=== PATIENT | male | born 1965 | race Caucasian/White ===

== ENCOUNTER 2017-12-26 07:39 | Day surgery (SDC) | payer OTHER ==
[~2017-12-26] VITALS: Ht 182.9 cm; Wt 140.6 kg
[2017-12-26] VITALS (11 sets, daily range): BP systolic 105–137; BP diastolic 70–93
[~2017-12-26 07:39] MED LIST: BENA1TAB15 PO; BNZ20T; DILT300C25; DILT420C10 PO; ENOX300V SQ; FENO145T PO; HYDR-34 PO; JANTOVEN PO
[2017-12-26] MEDS ORDERED: NS IV 1000 ML 1,000 ML IV SCH ×2 (07:56→11:54)
[2017-12-26] MEDS ORDERED: LIDOCAINE 1% INJ 20 ML 20 ML VIAL ONE ×2 (08:04→11:17)
[2017-12-26] MEDS ORDERED: NS IV 1000 ML 2,000 ML ONE (08:04)
[2017-12-26] MEDS ORDERED: ceFAZolin 1,000 MG (ANCEF) VIAL ONE (08:04)
[2017-12-26 08:25] LABS: BILIRUBIN,URINE NEGATIVE (NEGATIVE); CLARITY,URINE CLEAR; COLOR,URINE YELLOW; GLUCOSE, URINE (UA) NEGATIVE (NEGATIVE); KETONES,URINE NEGATIVE (NEGATIVE); LEUKOCYTE ESTERASE ,URINE NEGATIVE (NEGATIVE); NITRITE,URINE NEGATIVE (NEGATIVE); PH,URINE 6 (5-9); PROTEIN,URINE NEGATIVE (NEGATIVE); UROBILINOGEN,URINE 1 MG/DL (NORMAL)
[2017-12-26 08:26] LABS: HEMOGLOBIN 16.4 G/DL (13.3-17.7); MEAN PLATELET VOLUME 11.3 FL (7.4-10.4); RED BLOOD COUNT 5.43 10^6/uL (4.35-5.85); RED CELL DISTRIBUTION WIDTH 14.4 % (10.0-14.5); WHITE BLOOD COUNT 6.4 10^3/uL (4.3-11.0)
--- NOTE | 2017-12-26 08:26 | Diagnostic Imaging Report ---
INDICATION: Pacemaker generator change Frontal chest obtained at 813 hours a.m. The heart is mildly enlarged. Mediastinal silhouette is otherwise unremarkable. The lungs show no focal infiltrate. There is no pneumothorax or pleural fluid. There is a single-lead pacemaker device in place with tip overlying the right ventricle. IMPRESSION: Cardiomegaly with pacemaker in place. No acute infiltrate or pleural fluid. Dictated by: Dictated on workstation # [id number]
[2017-12-26 08:32] LABS: BACTERIA,URINE NEGATIVE /HPF; SQUAMOUS EPITHELIAL CELL,UR RARE /HPF
[2017-12-26 08:40] LABS: INR 1.6 (0.8-1.4); PROTHROMBIN TIME PATIENT 19.1 SEC (12.2-14.7)
[2017-12-26 08:48] LABS: ALANINE AMINOTRANSFERASE 29 U/L (0-55); ALBUMIN 4.3 GM/DL (3.2-4.5); ALKALINE PHOSPHATASE 38 U/L (40-136); BILIRUBIN,TOTAL 0.6 MG/DL (0.1-1.0); BUN/CREATININE RATIO 15; CALCIUM 9.3 MG/DL (8.5-10.1); CARBON DIOXIDE 22 MMOL/L (21-32); CHLORIDE 107 MMOL/L (98-107); GFR ESTIMATED > 60; GLUCOSE 108 MG/DL (70-105); POTASSIUM 3.9 MMOL/L (3.6-5.0); SODIUM 140 MMOL/L (135-145)
[2017-12-26] MEDS ORDERED: WARF5TAB8 PO (08:51)
[2017-12-26] MEDS ORDERED: METF500T5 PO (08:51)
[2017-12-26] MEDS ORDERED: BENA1TAB58 PO (08:51)
[2017-12-26] MEDS ORDERED: DILT240C86 PO (08:51)
[2017-12-26] MEDS ORDERED: DILT180C54 PO (08:51)
[2017-12-26] MEDS ORDERED: FENO145T2 PO (08:54)
--- NOTE | 2017-12-26 10:19 | Cardiac Procedure Note-CS/ASA ---
Pre-Procedure Note Pre-Op Procedure Note H&P Reviewed The H&P was reviewed, patient examined and no changes noted. Date H&P Reviewed: December 26, 2017 Time H&P Reviewed: 10:19 Conscious Sedation Pre-Proced Time Reviewed: 10:19 ASA Class: 3 Airway Mallampati Classification: (lummi appropriate class) I. II. III, IV Lungs Heart ASA score ASA 1: a normal healthy patient ASA 2: a patient with a mild systemic disease (mid diabetes, controlled hypertension, obesity x ASA 3: a patient with a severe systemic disease that limits activity (angina , COPD, prior Myocardial infarction) ASA 4: a patient with an incapacitating disease that is a constant threat to life (CHF, renal failure) ASA 5: a moribund patient not expected to survive 24 hrs. (ruptured aneurysm) ASA 6: a declared brain patient whose organs are being harvested. For emergent operations, add the letter E after the classification Grade 3 Sedation Plan: Analgesia, Amnesia, Plan communicated to team members, Discussed options with patient/fam, Discussed risks with patient/fam Note The patient is an appropriate candidate to undergo the planned procedure, sedation, and anesthesia. The patient immediately re-assessed prior to indication. CALI VÁZQUEZ MD December 26, 2017 10:19
[2017-12-26] MEDS ORDERED: fentaNYL INJECTION 100 MCG/2 ML AMP ONE ×2 (10:39→11:21)
[2017-12-26] MEDS ORDERED: MIDAZOLAM 5 MG/5 ML (VERSED) VIAL ONE ×2 (10:39→11:16)
[2017-12-26] MEDS ORDERED: BACITRACIN INJECTION 50,000 UNIT, SODIUM CHLORIDE 0.9% IRRIGATIO 500 ML IR ONE ×2 (10:45)
[2017-12-26] MEDS ORDERED: NEO/POLY/BAC (NEOSPORIN) OINT 15 GM TUBE ONE (11:27)
--- NOTE | 2017-12-26 11:52 | Permanent Pacemaker Implant ---
Dual Chamber Pacemaker Implant PROCEDURE PHYSICIAN: Cali Holly DUAL CHAMBER PACEMAKER IMPLANTATION: DATE OF PROCEDURE: 12/26/17 REFERRING PHYSICIAN: Dr. Castillo Bose INDICATION: PREOPERATIVE DIAGNOSIS: Sick sinus syndrome POSTOPERATIVE DIAGNOSIS: Sick sinus syndrome HISTORY: Single-chamber pacemaker generator replacement PROCEDURE PERFORMED: 1. Single-chamber generator pacemaker replacement ANESTHESIA: Local anesthesia, conscious sedation. COMPLICATIONS: None PROCEDURE DETAILS: The patient is a 52 male and after all of the patients questions were answered, the patient was brought to the EP Lab. The patient's left chest was prepped and draped in sterile fashion. Local anesthesia applied then I made an incision, the previous device was removed. Skin pocket was enlarged due to the different in size. The lead was evaluated then by an attached new device using Tyromer S SR MRI # [id number], skin pocket was irrigated then the new device was placed in the pocket. Pocket was closed with sutures no complication noted DEVICE INFORMATION: RV LEAD: Bipolar with R-wave 25 mV, impedance 1240, pacing threshold is 0.75 V at 0.4 ms. PLAN: Patient will be monitored then discharged home CONCLUSION: Successful single-chamber pacemaker generator replacement with no complications FINAL DIAGNOSIS: Sick sinus syndrome Deep venous thromboses Hypertension Hyperlipidemia CALI HOLLY MD December 26, 2017 11:52
[2017-12-26] MEDS ORDERED: PATIENT MAY USE OWN MEDS, ALL PO SCH (12:00)
[2017-12-26] MEDS ORDERED: warFARin 5 MG (COUMADIN) TAB PO SCH (18:00)
[2017-12-26] MEDS: metFORMIN 500 MG (GLUCOPHAGE) TAB PO SCH (18:28)
[2017-12-26] MEDS ORDERED: NON-FORMULARY MEDICATION 1 EA EA (Fenofibrate Nanocrystallized (Tricor) 145 MG) PO SCH (21:00)
[2017-12-26] MEDS ORDERED: FENOFIBRATE 145 MG TABLET PO SCH (21:00)
[2017-12-26] MEDS ORDERED: NON-FORMULARY MEDICATION 1 EA EA (Metformin HCl 500 MG) PO SCH (21:00)
[2017-12-26] MEDS: ceFAZolin INJECTION 1,000 MG in NS (IVPB) 50 ML IV SCH (21:22)
[2017-12-27] VITALS: BP 118/94
[2017-12-27 04:00] VITALS: BP 128/84
[2017-12-27] MEDS: ceFAZolin INJECTION 1,000 MG in NS (IVPB) 50 ML IV SCH (05:34)
[2017-12-27] MEDS: metFORMIN 500 MG (GLUCOPHAGE) TAB PO SCH (05:34)
--- NOTE | 2017-12-27 07:36 | Cardiology Progress Note ---
Subjective Date Seen by Provider: December 27, 2017 Time Seen by Provider: 07:35 Subjective/Events-last exam Patient is feeling well. Site is healing well. Denied any pain. Ready to go home Review of Systems General: No Chills, No Night Sweats, No Fatigue, No Malaise, No Appetite, No Other HEENT: No Head Aches, No Visual Changes, No Eye Pain, No Ear Pain, No Dysphasia , No Sinus Congestion, No Post Nasal Drip, No Sore Throat, No Other Pulmonary: No Dyspnea, No Cough, No Pleuritic Chest Pain, No Other Cardiovascular: No: Chest Pain, Palpitations, Orthopnea, Paroxysmal Noc. Dyspnea, Edema, Lt Headedness, Other Objective-Cardiology Exam Last Set of Vital Signs Vital Signs 12/27/17 04:00 Temp 97.2 Pulse 64 Resp 16 B/P (MAP) 128/84 (99) Pulse Ox 96 O2 Delivery NIV CPAP Capillary Refill : I&O Intake and Output 12/26/17 23:59 Intake Total 1750 ml Output Total 600 ml Balance 1150 ml Intake Oral 700 ml IV Total 1050 ml Output Urine Total 600 ml General: Alert, Oriented X3, Cooperative HEENT: Atraumatic, PERRLA Neck: Supple, No JVD, No Thyromegaly Lungs: Clear to Auscultation, Normal Air Movement Heart: Regular Rate, Normal S1, Normal S2, No Murmurs Abdomen: Normal Bowel Sounds, Soft, No Tenderness, No Hepatosplenomegaly, No Masses Extremities: No Clubbing, No Cyanosis, No Edema, Normal Pulses, No Tenderness/ Swelling Skin: No Rashes, No Breakdown, No Significant Lesion Neuro: Normal Gait, Normal Speech, Strength at 5/5 X4 Ext, Normal Tone, Sensation Intact Psych/Mental Status: Mental Status NL, Mood NL Results Lab Laboratory Tests 12/26/17 08:20 A/P-Cardiology Admission Diagnosis Sick sinus syndrome Permanent pacemaker Hypertension Obstructive sleep apnea Assessment/Plan Sick sinus syndrome, history of permanent pacemaker, status post generator replacement complications. Next Hypertension, controlled, continue current medication monitor COPD/obstructive sleep apnea. Continue on C PAP Hyperlipidemia CALI VÁZQUEZ MD December 27, 2017 07:36
[2017-12-27] MEDS ORDERED: CEFU500T63 PO (07:37)
[2017-12-27 07:50] VITALS: BP 158/100
[2017-12-27 08:55] VITALS: BP 158/100
[2017-12-27] MEDS ORDERED: DILTIAZEM 180 MG (CARDIZEM CD) CAP PO SCH (09:00)
[2017-12-27] MEDS ORDERED: HCTZ PO SCH (09:00)
[2017-12-27] MEDS ORDERED: DILTIAZEM 240 MG (CARDIZEM CD) CAP PO SCH (09:00)
[2017-12-27] MEDS ORDERED: DILTIAZEM HCL 240 MG PO SCH (09:00)
[2017-12-27] MEDS ORDERED: BENAZEPRIL PO SCH (09:00)
== END 2017-12-27 08:55 | disposition home or self-care (01) ==
LOC: CATH 07:39 → ICU 12:08 → CATH 12-27 08:55
PROVIDERS: ATTEND Internal Medicine Cardiovascular Disease
DX: I49.5 Sick sinus syndrome (principal); I10 Essential (primary) hypertension; E78.5 Hyperlipidemia, unspecified; G47.33 Obstructive sleep apnea (adult) (pediatric); E66.01 Morbid (severe) obesity due to excess calories; Z68.41 Body mass index [BMI] 40.0-44.9, adult; Z86.718 Personal history of other venous thrombosis and embolism; Z79.01 Long term (current) use of anticoagulants; Z79.899 Other long term (current) drug therapy
CPT/HCPCS: 33227; 36415; 71045; 80053; 81000; 85027; 85610; 85730; 87081; 93005

== ENCOUNTER → 2018-11-08 | Outpatient (CLI) | payer OTHER ==
[~2018-11-08] MED LIST changes: +BENA1TAB58 PO; +CEFU500T63 PO; +DILT180C54 PO; +DILT240C86 PO; +FENO145T2 PO; +METF-397 PO; +WARF5TAB8 PO
== END ==
LOC: CARD 08:27
PROVIDERS: ATTEND Physician Assistant
DX: I10 Essential (primary) hypertension (principal); E78.5 Hyperlipidemia, unspecified; E66.01 Morbid (severe) obesity due to excess calories; I49.5 Sick sinus syndrome; I07.1 Rheumatic tricuspid insufficiency
CPT/HCPCS: 93306

== ENCOUNTER → 2020-08-02 | Outpatient (CLI) | payer OTHER ==
[~2020-08-02] VITALS: Ht 182 cm; Wt 148.0 kg
[~2020-08-02] MED LIST changes: +REGADENOSON 0.4 MG/5 ML SYR (LEXISCAN) IV ONE; -WARF5TAB8 PO; +WRF5T PO
[2020-08-02] MEDS: CATHETER FLUSH 10 ML SYR IV PRN ×3 (07:52→09:04)
[2020-08-02 09:03] VITALS: BP 142/92
== END ==
LOC: CARD 07:45
PROVIDERS: ATTEND Physician Assistant
DX: I49.5 Sick sinus syndrome (principal)
CPT/HCPCS: 78452; 93017; A9502

== ENCOUNTER → 2022-04-13 | Outpatient (CLI) | payer BC, OTHER ==
[~2022-04-13] MED LIST changes: -REGADENOSON 0.4 MG/5 ML SYR (LEXISCAN) IV ONE
--- NOTE | 2022-04-13 11:07 | Diagnostic Imaging Report ---
US SCROTUM (Testicle) [id number] TECHNIQUE: Allen-scale, color doppler and spectral duplex imaging of the scrotum and its contents was performed. INDICATION: Left-sided testicular pain COMPARISON: None available. FINDINGS: Right: The right testis is normal in size measuring 4.3 x 2.4 x 2.6 cm. It has homogenous echogenicity without mass or microcalcification. Blood flow is present in the right testis by color doppler imaging, and low resistance waveforms are present. Small epididymal head cyst measures 0.5 x 0.8 cm. Small hydrocele is present superiorly. No varicocele. Left: The left testis is normal in size measuring 4.4 x 2.3 x 3.3 cm. It has homogenous echogenicity without mass or microcalcification. Blood flow is present in the left testis by color doppler imaging, and low resistance waveforms are present. A simple epididymal head cyst measures 1.6 x 1.3 cm. No hydrocele or varicole. IMPRESSION: 1. No testicular torsion. 2. Simple epididymal head cyst on the left measures up to 1.6 cm. 3. No features of epididymitis-orchitis. Dictated by: Dictated on workstation # [id number]
== END ==
LOC: RAD 08:24
PROVIDERS: ATTEND Urology
DX: L72.0 Epidermal cyst (principal)
CPT/HCPCS: 76870

== ENCOUNTER → 2023-06-25 | Outpatient (CLI) | payer OTHER ==
--- NOTE | 2023-06-25 16:19 | Diagnostic Imaging Report ---
PROCEDURE: CT abdomen and pelvis with contrast. TECHNIQUE: Multiple contiguous axial images were obtained through the abdomen and pelvis after administration of intravenous contrast. Auto Exposure Controls were utilized during the CT exam to meet ALARA standards for radiation dose reduction. All CT scans use one or more of the following dose optimizing techniques: Automated exposure control, MA and/or KvP adjustment based on patient size and exam type or iterative reconstruction. INDICATION: Abnormal finding on colonoscopy. COMPARISON: 10/30/2014. FINDINGS: Included portions of the lung bases are clear. CT ABDOMEN: Gastrografin was injected via a rectal catheter, and CT of the abdomen and pelvis was performed in the supine and prone position. There is reflux of contrast to the cecum. The small bowel and appendix are unopacified. There is mild residual stool scattered throughout the colon. A few colonic diverticula are also noted. No large mass or other obstructive colonic lesion is seen. There is no abnormal colonic wall thickening. Large left paracentric ventral hernia is noted involving the left lower abdominal quadrant. Hernia contains multiple loops of small bowel. There is, however, no abnormal small bowel dilatation to suggest obstruction. Small bowel loops are unopacified, but there is no abnormal small bowel wall thickening to suggest strangulation. Liver is diffusely hypodense on this postcontrast exam suggestive of hepatic steatosis. Otherwise, the liver, kidneys, adrenal glands, spleen, and pancreas have a normal CT appearance. There is no loculated fluid collection, free fluid, nor free air within the abdomen. No abnormal mesenteric or retroperitoneal adenopathy is seen. Osseous structures show no acute abnormalities. CT PELVIS: Urinary bladder is grossly unremarkable. There is no loculated fluid collection, free fluid, nor free air within the pelvis. No abnormal lymph nodes are identified. Osseous structures show no acute abnormalities. IMPRESSION: 1. No large colonic mass or other obstructive colonic lesion. 2. Hepatic steatosis. 3. Large left paracentric ventral hernia of the pelvis containing multiple loops of small bowel. No evidence of small bowel obstruction or strangulation. Dictated by: Dictated on workstation # [id number]
== END ==
LOC: RAD 07:52
PROVIDERS: ATTEND Surgery
DX: K76.0 Fatty (change of) liver, not elsewhere classified (principal); K43.9 Ventral hernia without obstruction or gangrene
CPT/HCPCS: 74177